=== PATIENT | male | born 2000 | race Two or more races ===

== ENCOUNTER 2019-10-29 18:02 | Emergency (ER) | payer SELFPAY ==
[~2019-10-29] VITALS: Ht 172.7 cm; Wt 118.0 kg
[2019-10-29 18:10] VITALS: BP 145/90
--- NOTE | 2019-10-29 18:28 | PHYS DOC ---
Past Medical History Past Medical History: No Pertinent History Additional Past Surgical Histo: WISDOM TEETH Smoking Status: Never Smoker Alcohol Use: Occasionally Social History Narrative: MARIJUANA OCCASIONALLY General Adult EDM: Chief Complaint: LACERATION/AVULSION HPI: HPI: Patient is a 19 year old Male who presents with was doing work on the inside of the house when a metal pole from the ceiling fell hitting him in the right for ehead. Denies loc, nausea, vomiting, vision changes, numbness or tingling, abdominal pain. Rate pain a 7/10. States he needs a tetanus shot. Review of Systems: Review of Systems: Integument: Denies rash. Laceration to right forehead [] Heart Score: Risk Factors: Risk Factors: DM, Current or recent (<one month) smoker, HTN, HLP, family history of CAD, obesity. Risk Scores: Score 0 - 3: 2.5% MACE over next 6 weeks - Discharge Home Score 4 - 6: 20.3% MACE over next 6 weeks - Admit for Clinical Observation Score 7 - 10: 72.7% MACE over next 6 weeks - Early Invasive Strategies Allergies: Allergies: Allergies Coded Allergies Type Severity Reaction Last Updated Verified No Known Drug Allergies 10/29/19 No Physical Exam: PE: Constitutional: Well developed, well nourished, no acute distress, non-toxic appearance. [] HENT: Normocephalic, atraumatic, bilateral external ears normal, oropharynx moist, no oral exudates, nose normal. [] Eyes: PERRLA, EOMI, conjunctiva normal, no discharge. [] Neck: Normal range of motion, no tenderness, supple, no stridor. [] Cardiovascular:Heart rate regular rhythm, no murmur [] Lungs & Thorax: Bilateral breath sounds clear to auscultation [] Abdomen: Bowel sounds normal, soft, no tenderness, no masses, no pulsatile masses. [] Skin: Warm, dry, no erythema, no rash. Laceration to right forehead [] Back: No tenderness, no CVA tenderness. [] Extremities: No tenderness, no cyanosis, no clubbing, ROM intact, no edema. [] Neurologic: Alert and oriented X 3, normal motor function, normal sensory function, no focal deficits noted. [] Psychologic: Affect normal, judgement normal, mood normal. [] Current Patient Data: Vital Signs: Vital Signs Date Time Temp Pulse Resp B/P (MAP) Pulse Ox O2 Delivery O2 Flow Rate FiO2 10/29/19 18:10 98.6 90 16 145/90 (108) 99 Room Air 98.6 EKG: EKG: [] Radiology/Procedures: Radiology/Procedures: [] Impression: [facility] [address] [place] [address] IMAGING REPORT Signed PATIENT: YANETH PEÑA ACCOUNT: [id number] : 2000 LOCATION: ER AGE: 19 SEX: M EXAM STATUS: REG ER ORD. PHYSICIAN: YUDELKA WILEY APRN REASON: HEAD LAC, HIT WITH METAL BEAM PROCEDURE: CT HEAD WO CONTRAST Exam: CT head INDICATION: Trauma TECHNIQUE: Sequential axial images through the head were obtained without the administration of IV contrast. Comparisons: None FINDINGS: No focal parenchymal lesion or hemorrhage is identified. There is no midline shift or sulcal effacement. No acute vascular territory infarction is identified. Guillen-white distinction is preserved. The ventricular system is within normal limits without compression hydrocephalus. The basal cisterns are well maintained. The visualized portions of the paranasal sinuses and mastoid air cells are well-pneumatized. No acute fractures. IMPRESSION: No acute intracranial abnormality. Exposure: One or more of the following in the visualized dose reduction techniques were utilized for this examination: 1. Automated exposure control 2. Adjustment of the MA and/or KV according to patient size Use of iterative of reconstructive technique Electronically signed by: Georgia Riggs MD (10/29/2019 6:52 PM) [id number] DICTATED and SIGNED BY: GEORGIA RIGGS MD DATE: 10/29/191851 Course & Med Decision Making: Course & Med Decision Making Pertinent Labs and Imaging studies reviewed. (See chart for details) Alert and oriented. PERRLA. Speaks in full clear sentences. Ambulatory with steady gait. No tenderness neck with palpation full range of motion of the neck. He did not fall when this happened. Patient has 1+ swelling but no bruising to the right forehead just around the laceration. Bleeding is controlled. No drainage from ears or nose. No deformity to skull. Laceration repair Location: Right forehead, 1 inch Local anesthesia: None needed Interrupted sutures/Internal sutures: Merrill Richards and steri strips Nerve/ligament/muscle damage: None Cleaning and irrigation: Saline and chlorhexidine The appropriate timeout was taken. The area was prepped and draped in the usual sterile fashion. The wound was copiously irrigated with normal saline and chlorhexidine. Patient tolerated well without complication. Dressing was applied to the area follow-up education is given to observe for signs and symptoms of infection, bleeding and to follow-up promptly if these occur. Patient can return in 48 hours for a wound recheck. Sutures to be removed in 7 to 10 days. [] Dragon Disclaimer: Dragon Disclaimer: This electronic medical record was generated, in whole or in part, using a voice recognition dictation system. Departure Departure Impression: Primary Impression: Laceration Additional Impression: Head injury Qualified Codes: S09.90XA - Unspecified injury of head, initial encounter Disposition: 01 HOME, SELF-CARE Condition: STABLE Patient Instructions: Facial Laceration, [id number], Head Injury, Adult Additional Instructions: Follow-up with primary care provider if needed. Take Tylenol or ibuprofen for your pain. If you begin having vomiting, lose consciousness, extreme dizziness you need to come back to the emergency room. Drink plenty of fluids. YUDELKA WILEY [employer] October 29, 2019 18:28
[2019-10-29] MEDS ORDERED: IBUPROFEN 200 MG TABLET. PO ONE (18:30)
[2019-10-29] MEDS ORDERED: DIPH,PERTUSS(ACELL),TET VAC/PF 0.5 ML SYRINGE. VAX IM ONE (18:30)
--- NOTE | 2019-10-29 18:55 | RAD ---
Exam: CT head INDICATION: Trauma TECHNIQUE: Sequential axial images through the head were obtained without the administration of IV contrast. Comparisons: None FINDINGS: No focal parenchymal lesion or hemorrhage is identified. There is no midline shift or sulcal effacement. No acute vascular territory infarction is identified. Guillen-white distinction is preserved. The ventricular system is within normal limits without compression hydrocephalus. The basal cisterns are well maintained. The visualized portions of the paranasal sinuses and mastoid air cells are well-pneumatized. No acute fractures. IMPRESSION: No acute intracranial abnormality. Exposure: One or more of the following in the visualized dose reduction techniques were utilized for this examination: 1. Automated exposure control 2. Adjustment of the MA and/or KV according to patient size Use of iterative of reconstructive technique Electronically signed by: Figueroa Howard MD (10/29/2019 6:52 PM) [id number]
== END 2019-10-29 19:10 | disposition home or self-care (01) ==
LOC: ER 18:02
DX: S01.81XA Laceration without foreign body of other part of head, initial encounter (principal); R51 Headache; W20.8XXA Other cause of strike by thrown, projected or falling object, initial encounter; Y93.89 Activity, other specified; Y92.69 Other specified industrial and construction area as the place of occurrence of the external cause; Y99.0 Civilian activity done for income or pay
CPT/HCPCS: 12011; 70450; 90471; 90715; 99284